=== PATIENT | female | born 1990 | race Caucasian/White ===

== ENCOUNTER 2018-01-03 12:18 | Emergency (ER) | payer MEDICAID ==
[~2018-01-03] VITALS: Ht 152.4 cm; Wt 78.0 kg
[2018-01-03 12:24] VITALS: BP 144/85
--- NOTE | 2018-01-03 12:39 | NUR ---
PT C/O GENERALIZED RASH/RED RAISED SPOTS OVER BODY FOR 1 WEEK. PT STATES IT ITCHES AND HAS BURNIGN SENSATION. RED SPOTS ARE SIGHTLY RAISED, NO DRAINAGE, DENIES FEVER. NAD NOTED/SATATED OTHERWISE.
[2018-01-03 13:37] VITALS: BP 139/78
--- NOTE | 2018-01-03 13:37 | NUR ---
Patient discharged with v/s stable. Written and verbal after care instructions given and explained. Patient alert, oriented and verbalized understanding of instructions. Ambulatory with steady gait. All questions addressed prior to discharge. ID band removed. Patient advised to follow up with PMD. Rx of KEFLEX, PREDNISONE, TYLENOL given. Patient educated on indication of medication including possible reaction and side effects. Opportunity to ask questions provided and answered.
== END 2018-01-03 13:37 | disposition home or self-care (01) ==
LOC: MED 12:18
DX: R21 Rash and other nonspecific skin eruption (principal)
CPT/HCPCS: 99283